=== PATIENT | female | born 1980 | race Caucasian/White ===

== ENCOUNTER → 2019-04-24 10:41 | Outpatient (BNVA) | payer OTHER, SELFPAY | PROVIDERS: Family Provider Nurse Practitioner Family; PCP Nurse Practitioner Family; Visit Provider Family Medicine | DX: E03.9 Hypothyroidism, unspecified (principal); F41.1 Generalized anxiety disorder; I10 Essential (primary) hypertension | CPT/HCPCS: 80053; 80061; 84439; 84443; 84481 ==

== ENCOUNTER 2021-07-30 14:47 | Outpatient (CLI) | payer MEDICAID, SELFPAY ==
--- NOTE | 2021-07-30 15:15 | MR_ITS ---
WS: [id number] MRI RIGHT SHOULDER HISTORY: M25.511 - Pain in right shoulder COMPARISON: None available. TECHNIQUE: Multiplanar sequences of the shoulder joint are submitted. Moderate AC joint hypertrophy. Narrowing of the AC joint with soft tissue and bone hypertrophy. Osteo phytes encroach upon the supraspinatus tendon and muscle near the myotendinous insertion. No signific ant subacromial impingement. No subacromial or subdeltoid bursal distention. Biceps tendon in normal position. No os acromion. Humeral head is normally seated in the glenoid. No atrophy or edema within the rotator cuff muscles. No tears or retraction of the tendons. No labral tear is appreciated. MR/MR shoulder RT wo con* [id number] IMPRESSION: 1. Moderate AC joint arthritis with encroachment upon the myotendinous inserti on of the supraspinatus. 2. No rotator cuff tear, muscle edema or atrophy.
--- NOTE | 2021-07-30 16:00 | MR_ITS ---
WS: [id number] MRI CERVICAL SPINE NONCONTRAST TECHNIQUE: Sagittal T1, T2 and STIR imaging. Axial T2, gradient, and fiesta imaging. Gadolinium was n ot administered. Patient deferred IV contrast. CLINICAL INFORMATION: G54.2 - Cervical root disorders, not elsewhere classified COMPARISON: None. FINDINGS: Straightening of the normal cervical lordosis. Mild disc bulging mid cervical spine. Cord signal is n ormal. C2-C3: Normal. C3-C4: Mild disc osteophytic ridging. Moderate RIGHT and mild LEFT bony foraminal narrowing. Spinal c anal is patent. C4-C5: Disc osteophyte complex with a tiny central disc protrusion. Mild central canal stenosis. Mode rate LEFT and mild to moderate RIGHT bony foraminal narrowing. Mild facet arthropathy. C5-C6: Disc osteophyte complex with endplate ridging. Mild central canal stenosis. Moderate bilateral bony foraminal narrowing. Mild central canal stenosis. C6-C7: Normal. C7-T1: Normal Visualized brain stem structures: Normal. Prevertebral soft tissues: Normal. MR/MR cervical spin wo con* [id number] IMPRESSION: 1. Straightening of the normal cervical lordosis. Cord signal is normal. 2. Mild central canal stenosis C4-C5 and C5-C6. 3. Moderate bony foraminal narrowing RIGHT C3-C4, LEFT C4-C5, and bilateral C5 -C6.
== END 2021-07-30 14:48 | disposition home or self-care (01) ==
LOC: RAD 14:54
PROVIDERS: PCP Emergency Medicine; Visit Provider Emergency Medicine
DX: G54.2 Cervical root disorders, not elsewhere classified (principal); M48.02 Spinal stenosis, cervical region; M25.511 Pain in right shoulder
CPT/HCPCS: 72141; 73221

== ENCOUNTER → 2021-08-26 07:54 | Outpatient (BNVA) | payer MEDICAID, SELFPAY | PROVIDERS: PCP Emergency Medicine; Referring Provider Emergency Medicine; Visit Provider Orthopaedic Surgery | DX: M47.22 Other spondylosis with radiculopathy, cervical region (principal) | CPT/HCPCS: 72020; 72040; 99204 ==

== ENCOUNTER → 2021-09-29 12:55 | Outpatient (BNVA) | payer MEDICAID, SELFPAY | PROVIDERS: PCP Emergency Medicine; Referring Provider Emergency Medicine; Visit Provider Specialist | DX: M19.011 Primary osteoarthritis, right shoulder (principal); M75.41 Impingement syndrome of right shoulder; M79.7 Fibromyalgia; M25.511 Pain in right shoulder; G89.29 Other chronic pain | CPT/HCPCS: 73030; 99204 ==

== ENCOUNTER → 2021-09-30 08:29 | Outpatient (BNVA) | payer MEDICAID, SELFPAY | PROVIDERS: PCP Emergency Medicine; Visit Provider Anesthesiology Pain Medicine | DX: M47.22 Other spondylosis with radiculopathy, cervical region (principal); M48.02 Spinal stenosis, cervical region; M19.011 Primary osteoarthritis, right shoulder; M75.41 Impingement syndrome of right shoulder | CPT/HCPCS: 99205 ==

== ENCOUNTER → 2022-08-07 09:31 | Outpatient (BNVA) | payer OTHER, MEDICAID, SELFPAY | PROVIDERS: PCP Family Medicine Adult Medicine; Visit Provider Family Medicine Adult Medicine | DX: R19.7 Diarrhea, unspecified (principal); L30.9 Dermatitis, unspecified; E03.9 Hypothyroidism, unspecified; I10 Essential (primary) hypertension; Z68.42 Body mass index [BMI] 45.0-49.9, adult | CPT/HCPCS: 80053; 80061; 82784; 83516; 84443; 85025 ==

== ENCOUNTER → 2022-09-30 08:03 | Outpatient (BNVA) | payer OTHER, MEDICAID, SELFPAY | PROVIDERS: PCP Family Medicine Adult Medicine; Visit Provider Family Medicine Adult Medicine | DX: R39.9 Unspecified symptoms and signs involving the genitourinary system (principal); M46.1 Sacroiliitis, not elsewhere classified; L40.9 Psoriasis, unspecified; L30.9 Dermatitis, unspecified | CPT/HCPCS: 81000 ==

== ENCOUNTER → 2023-01-20 14:25 | Outpatient (BNVA) | payer OTHER, MEDICAID, SELFPAY | PROVIDERS: PCP Family Medicine Adult Medicine; Visit Provider Internal Medicine | DX: L40.9 Psoriasis, unspecified (principal); M46.1 Sacroiliitis, not elsewhere classified; M45.0 Ankylosing spondylitis of multiple sites in spine; R21 Rash and other nonspecific skin eruption; R19.7 Diarrhea, unspecified; M25.50 Pain in unspecified joint; Z79.899 Other long term (current) drug therapy | CPT/HCPCS: 36415; 80053; 81003; 82550; 82784; 83516; 83735; 84100; 84439; 84443; 85025; 85651; 86140; 86160; 86162; 86200; 86235; 86255; 86376; 86431; 86704; 86803; 86812; 87340; 87522 ==

== ENCOUNTER → 2023-05-26 09:12 | Outpatient (BNVA) | payer OTHER, MEDICAID, SELFPAY | PROVIDERS: PCP Family Medicine Adult Medicine; Visit Provider Family Medicine Adult Medicine | DX: E74.9 Disorder of carbohydrate metabolism, unspecified (principal); N89.8 Other specified noninflammatory disorders of vagina; Z13.9 Encounter for screening, unspecified; F41.1 Generalized anxiety disorder; I10 Essential (primary) hypertension; E66.9 Obesity, unspecified; R00.1 Bradycardia, unspecified | CPT/HCPCS: 83036 ==